=== PATIENT | female | born 1960 | race Caucasian/White ===

== ENCOUNTER 2023-11-16 14:10 | Emergency (ER) | payer OTHER, MEDICAID, SELFPAY ==
[2023-11-16 14:22] VITALS: BP 118/77; PULSE 77; RESP 16; TEMP 36.6; O2SAT 100; BMI 22.0
--- NOTE | 2023-11-16 14:37 | ED_ITS ---
HPI - General Adult General Chief complaint: Unspecified Complaint, Adult Stated complaint: PCP sent due to K+ 2.6 Time Seen by Provider: 11/16/23 14:37 History of Present Illness HPI narrative: This is a 63-year-old female with a past medical history of chronic back pain (follows with [facility], on opiates) constipation due to opiates (treats herself at home with Ex-Lax as needed) anxiety/depression, restless leg syndrome, chronic GERD. She is referred to the ER today after a phone conversation with her primary care provider, a doctor through the [facility] in [place], [place]. She was at the doctor's office yesterday for a routine preop history and physical. She is scheduled to have back surgery tomorrow. On her labs, she had dangerously low potassium last night with potassium of 2.6 so was told to come here to the ER. She says that she has been feeling fine lately. No weakness. No dizzy spells. No palpitations. No recent vomiting or diarrhea. Because of constipation she needs to use Ex-Lax once or twice a week. She does not drink alcohol. She does not smoke cigarettes. She does drink a lot of monster drinks. She does take ?a lot? of meds, but does not recall the list. She is not able to pull it up on her phone. She does not recall any diuretics. In review of her [facility] care link med list includes Albuterol Wellbutrin XL 300 mg daily Flexeril Cymbalta Gabapentin Omeprazole Oxycodone 5/325 Mupirocin cream Tretinoin cream She had her preop history and physical yesterday 11/14 with JANEY Harris Labs showed Na 140 K 2.6 Cl 98 CO2 33 Glc 83 Ca 9.3 BUN 15 Cr 1.07 Related Data Previous Rx's ?Medication ?Instructions ?Recorded potassium bicarbonate-citric acid 50 meq (2 x 25 mEq) PO QID #6 ea 11/16/23 25 mEq effervescent tablet Allergies Allergy/AdvReac Type Severity Reaction Status Date / Time Penicillins Allergy Severe Anaphylaxis Verified 11/16/23 14:21 tramadol AdvReac Intermediate Headache Verified 11/16/23 14:21 Exam Narrative: Exam Narrative: Constitutional: Appears well-developed and well-nourished. Alert. Conversant. Non toxic. HENT: Head: Atraumatic. Nose: Nose normal. Mouth/Throat: Oral mucosa is clear and moist. no trismus. Pharynx normal. Tonsils symmetric. No tonsillar enlargement, erythema, or exudate. Eyes: Conjunctivae normal. EOM normal. Pupils equal, round, and reactive to light. No scleral icterus. Neck: Normal range of motion. Neck supple. No tracheal deviation present. Cardiovascular: Normal rate, regular rhythm. No gallop. No friction rub. No murmur heard. Symmetric radial artery pulses Pulmonary/Chest: Effort normal. No stridor. No respiratory distress. No wheezes. No rales. No rhonchi . No tenderness. Abdominal: Soft. Bowel sounds normal. No distension. No mass. No tenderness. No rebound. No guarding. Musculoskeletal: RUE: Normal range of motion. No tenderness. No deformity LUE: Normal range of motion. No tenderness. No deformity RLE: Normal range of motion. No edema. No tenderness. No deformity LLE: Normal range of motion. No edema. No tenderness. No deformity Lymph: No cervical adenopathy. Neurological: Alert and oriented to person, place, and time. Normal strength. CN II-VII intact. No sensory deficit. GCS eye subscore is 4. GCS verbal subscore is 5. GCS motor subscore is 6. Normal coordination Skin: Skin is deeply green. Multiple tattoos. No rashes. Well groomed. Glossy turquoise fingernails. Skin is warm and dry. No rash noted. No pallor. Normal capillary refill. Psychiatric: Normal mood. Normal affect. Const: Vital Signs, click to edit/add: Vital Signs - 24 hr 11/16/23 14:22 11/16/23 17:43 Temperature 97.8 F Pulse Rate [Pulse Oximeter] 77 74 Respiratory Rate 16 16 Blood Pressure [Ri ght Upper Arm] 118/77 124/87 Pulse Oximetry 100 Oxygen Delivery Me thod Room Air Course Vital Signs Vital signs: Initial Vital Signs Temperature 97.8 F 11/16/23 14:22 Temperature Source Temporal Artery Scan 11/16/23 14:22 Pulse Rate 77 11/16/23 14:22 Respiratory Rate 16 11/16/23 14:22 Blood Pressure 118/77 11/16/23 14:22 Blood Pressure Mean 90 11/16/23 14:22 Blood Pressure Position Sitting 11/16/23 14:22 Pulse Oximetry 100 11/16/23 14:22 Oxygen Delivery Method Room Air 11/16/23 14:22 Vital Signs Temperature 97.8 F 11/16/23 14:22 Pulse Rate 77 11/16/23 14:22 Respiratory Rate 16 11/16/23 14:22 Blood Pressure 118/77 11/16/23 14:22 Pulse Oximetry 100 11/16/23 14:22 Oxygen Delivery Method Room Air 11/16/23 14:22 Temperature 97.8 F 11/16/23 14:22 Pulse Rate 74 11/16/23 17:43 Respiratory Rate 16 11/16/23 17:43 Blood Pressure 124/87 11/16/23 17:43 Pulse Oximetry 100 11/16/23 14:22 Oxygen Delivery Method Room Air 11/16/23 14:22 Medications Administered Medications: Discontinued Medications Generic Name Dose Route Start Last Admin Trade Name Freq PRN Reason Stop Dose Admin Potassium Chloride 10 meq in 100 mls @ 100 mls/hr 11/16/23 16:22 11/16/23 16:34 Potassium Chloride IVPB 11/16/23 17:21 100 mls/hr ONCE ONE Administration Potassium Bicarbonate 100 meq 11/16/23 16:26 11/16/23 16:33 Potassium Bicarb 25 Meq Effervescent Tab PO 11/16/23 16:27 100 meq ONCE ONE Administration Medical Decision Making MDM Narrative Medical decision making narrative: Pleasant 63-year-old female referred to the ER by her primary care provider, the [facility] in [place] for hypokalemia found on a outpatient lab draw yesterday (done for a routine preop history and physical). She says she is asymptomatic. No recent palpitations or other dizzy spells or presyncopal events. She is not on any diuretics. She denies alcohol consumption. She occasionally uses stool softeners for opiate induced constipation but does not have a problem with diarrhea or vomiting. She says she feels fine other than she has chronic low back pain and is very frustrated/disappointed that her long anticipated back surgery needs to be put off because of her low potassium. She is confirmed to be hypokalemic today. Potassium today is 2.3. Magnesium level is normal at 1.8. Kidney function is normal. Blood sugar normal. EKG does not show any ischemia or arrhythmia but does show a prolonged QT with a QTC of 484. This does suggest that hypokalemia is affecting the patient's cardiac conduction system and puts her at at least some risk for torsades and other arrhythmias. She I ordered initial potassium supplementation of 100 milk oval in some potassium bicarbonate p.o. and 10 milligrams/hour of potassium chloride IV. I recommended admission to the patient. Initially she seemed agreeable. Discussed with our hospitalist, Dr. Fischer who agreed to admit her for potassium supplementation and cardiac monitoring. Cause for hypokalemia is unclear. I do not see any meds on her med list that would be causative. No history of vomiting or diarrhea or alcohol consumption. Subsequently, the patient became very upset and angry saying that ?no way in hell? which she going to stay in the hospital. She is demanding to discharge home. I talked to her. I gave her my recommendation for hospitalization as well as the risk of malignant cardiac arrhythmias such as torsades and risk of sudden . Nonetheless she is demanding discharge. At this point she is clinically sober, she understands her diagnosis, the risks, and my rationale for admission. She understands the risks she is taking if she discharges to home. She has medical decision-making capacity. She will agree to stay here in the ER to complete her 1st oral doses and IV does. Additional oral potassium doses sent to her pharmacy so she can continue supplementing overnight. Potassium bicarbonate 50 mEq every 6 hours. Recommend outpatient follow-up tomorrow for repeat potassium check. If she is not able to follow-up with her primary, she should come back to ER or urgent care to get rechecked, without fail, tomorrow morning. Addendum: I was contacted by the patient's pharmacy. They do not have the right formulation of potassium bicarbonate. They do have 20 mEq tablets. Therefore will put her on 60 mEq every 6 hours. Lab Data Labs: Lab Results 11/16/23 Range/Units 14:51 Sodium 138 (135-149) mmol/L Potassium 2.3 L* (3.6-5.1) mmol/L Chloride 98 (96-114) mmol/L Carbon Dioxide 35 H (20-32) mmol/L Anion Gap 5 L (7-15) mEq/L BUN 16 (7-30) mg/dL Creatinine 1.1 (0.5-1.5) mg/dL Estimated Creat Clear 53.49 Estimated GFR 57 ml/min Glucose 99 (60-115) mg/dL Calcium 8.9 (8.4-10.6) mg/dL Magnesium 1.8 (1.5-2.6) mg/dL ECG Data Attestation: I personally reviewed and interpreted this ECG as follows: Interpretation: Normal sinus rhythm Rate: 68 [place]: 158. QRS axis: Normal axis. ST segment/T wave: Artifact in leads V1 and V2. No other ST segment elevation or depression. QTc: Prolonged QT. QTC 484 Discharge Plan Discharge Clinical Impression: Acute hypokalemia, Prolonged QT interval Patient Disposition: Home, Self-Care Condition: Stable Instructions: Hypokalemia (ED) Additional Instructions: As we discussed, your potassium is dangerously low today. It is very important to get your potassium level up. You received your 1st doses of potassium here in the ER. You need to take an additional dose this evening and an extra dose of potassium every 6 hours until tomorrow morning. You should have your potassium recheck tomorrow. If it is feasible you can have your potassium rechecked in your doctor's office. If that is not possible please come back to the ER or urgent care to have a potassium level recheck tomorrow. If you change your your mind about hospitalization or if you have any worsening symptoms such as weakness, dizziness, palpitations, or fainting spells, call 911 or return to the ER right away. Prescriptions: New potassium bicarb-citric acid 25 mEq tablet, effervescent 50 meq PO QID Qty: 6 0RF Follow Up/Referrals: Provider,Not a Local [Primary Care Provider] - Stand Alone Forms: [employer] Info Instructions
[2023-11-16 15:13] LABS: Chloride* 98 mmol/L (96-114); Sodium* 138 mmol/L (135-149)
[2023-11-16 15:15] LABS: Creatinine* 1.1 mg/dL (0.5-1.5); Est. Creatinine Clearance* 53.49; Estimated Glomerular Filt Rate 57 ml/min
[2023-11-16 15:16] LABS: Anion Gap 5 mEq/L (7-15); Blood Urea Nitrogen* 16 mg/dL (7-30); Calcium* 8.9 mg/dL (8.4-10.6); Carbon Dioxide* 35 mmol/L (20-32); Glucose* 99 mg/dL (60-115)
[2023-11-16 15:36] LABS: Potassium* 2.3 mmol/L (3.6-5.1)
[2023-11-16 16:23] LABS: Magnesium* 1.8 mg/dL (1.5-2.6)
[2023-11-16] MEDS: POTASSIUM BICARB 25 MEQ EFFERVESCENT TAB 100 MEQ PO (16:33)
[2023-11-16] MEDS: POTASSIUM CHLORIDE 10 MEQ/100 ML PIGGYBACK 100 MEQ IVPB (16:34)
[2023-11-16 17:43] VITALS: BP 124/87; PULSE 74; RESP 16
== END 2023-11-16 18:00 | disposition home or self-care (01) ==
PROVIDERS: Emergency Provider Emergency Medicine
DX: E87.6 Hypokalemia (principal); I45.81 Long QT syndrome
CPT/HCPCS: 36415; 80048; 83735; 93005; 96365; 99283; 99284; A9270; J3480

== ENCOUNTER 2023-11-17 10:11 | Emergency (ER) | payer MEDICARE, MEDICAID, SELFPAY ==
[2023-11-17 10:16] VITALS: BP 107/72; PULSE 74; RESP 18; TEMP 36.2; O2SAT 98; BMI 22.0
--- NOTE | 2023-11-17 10:53 | ED.GENADULT ---
HPI - General Adult General Time Seen by Provider: 10:56 Date Seen: 11/17/23 Chief complaint: Unspecified Complaint, Adult Stated complaint: re-check potassium Time Seen by Provider: 11/17/23 10:49 Source: patient and RN notes reviewed Mode of arrival: ambulatory Limitations: no limitations History of Present Illness HPI narrative: This 63-year-old female is coming in with concern of oral potassium pills making her feel sick. She was in the ER yesterday for asymptomatic hypokalemia found on preoperative testing. She received oral potassium here, did not want hospitalization, refused it. Her outpatient pharmacy had to give her oral tablets. These made her feel nauseated. Her stomach is feeling better as she did take Tums. She is back to be rechecked. She is supposed to have a lumbar surgery to relieve ?pressure on her spine?. She states she really does not feeling different. She does get some lower leg aching due to her back but denies any muscle cramps, no weakness. She states she does not feel any different. The provider yesterday did review with her that we have no discernible etiology as to the cause of her potassium. It is possible that she could have renal tubular acidosis or other etiologies. This workup in an asymptomatic patient is beyond the realm of the ED, she understands that she may need more outpatient workup. We can check her electrolytes in the meantime. Related Data Previous Rx's ?Medication ?Instructions ?Recorded potassium bicarbonate-citric acid 50 meq (2 x 25 mEq) PO QID #6 ea 11/16/23 25 mEq effervescent tablet Allergies Allergy/AdvReac Type Severity Reaction Status Date / Time Penicillins Allergy Severe Anaphylaxis Verified 11/17/23 10:24 tramadol AdvReac Intermediate Headache Verified 11/17/23 10:24 Review of Systems Status of ROS: Reports: 6 or more systems reviewed and unremarkable except as noted in History and below [facility] Social History Smoking Status: Never smoker Do you use any of these nicotine containing products: None How often do you have a drink containing alcohol: never How often do you have six or more drinks on one occasion: Never AUDIT-C Alcohol total score: 0 Non-prescribed substance use: denies use service: No Exam Const: Vital Signs, click to edit/add: Vital Signs - 24 hr 11/17/23 10:16 Temperature 97.2 F L Pulse Rate [Right Pulse Oximeter] 74 Respiratory Rate 18 Blood Pressure [Ri ght Upper Arm] 107/72 Pulse Oximetry 98 Oxygen Delivery Me thod Room Air This 63-year-old female is alert, interactive, no apparent distress. Skin is tanned, multiple tattoos. She overall is very pleasant, speech normal. Sclera clear, extraocular muscles intact, pupils equal and round. Lungs are clear, good air entry, wheeze or crackles. CV regular rate and rhythm, no murmur, normal S1-S2, no S3-S4. She has no lower extremity edema abdomen is soft, nontender, nondistended, no masses. Documenting provider has reviewed patient's vital signs: yes Course Course ED Course: We will recheck her basic metabolic panel and magnesium today. She may have to find the source of the liquid potassium to tolerate this and have further outpatient workup for her hypokalemia. Her primary care provider may need to send her to Nephrology. Reevaluation(s) Time of Reevaluation #1: 12:19 Reevaluation #1: Have reviewed with patient her potassium is normal here today. We have discussed trying eating more natural foods with higher content of potassium. She feels that might be her problem. She is aware that she does need to have her potassium followed or rechecked next week to ensure that dietary management is adequate. If she has ongoing issues with hypokalemia, will need referral or workup with her primary care. Vital Signs Vital signs: Initial Vital Signs Temperature 97.2 F L 11/17/23 10:16 Temperature Source Temporal Artery Scan 11/17/23 10:16 Pulse Rate 74 11/17/23 10:16 Pulse Rhythm Regular 11/17/23 10:16 Respiratory Rate 18 11/17/23 10:16 Blood Pressure 107/72 11/17/23 10:16 Blood Pressure Mean 83 11/17/23 10:16 Blood Pressure Position Sitting 11/17/23 10:16 Pulse Oximetry 98 11/17/23 10:16 Oxygen Delivery Method Room Air 11/17/23 10:16 Vital Signs Temperature 97.2 F L 11/17/23 10:16 Pulse Rate 74 11/17/23 10:16 Respiratory Rate 18 11/17/23 10:16 Blood Pressure 107/72 11/17/23 10:16 Pulse Oximetry 98 11/17/23 10:16 Oxygen Delivery Method Room Air 11/17/23 10:16 Temperature 97.2 F L 11/17/23 10:16 Pulse Rate 74 11/17/23 10:16 Respiratory Rate 18 11/17/23 10:16 Blood Pressure 107/72 11/17/23 10:16 Pulse Oximetry 98 11/17/23 10:16 Oxygen Delivery Method Room Air 11/17/23 10:16 Medical Decision Making Lab Data Lab results reviewed: Yes I reviewed the patient's lab results Labs: Lab Results 11/17/23 Range/Units 11:12 Sodium 141 (135-149) mmol/L Potassium 4.3 (3.6-5.1) mmol/L Chloride 106 (96-114) mmol/L Carbon Dioxide 32 (20-32) mmol/L Anion Gap 3 L (7-15) mEq/L BUN 15 (7-30) mg/dL Creatinine 1.0 (0.5-1.5) mg/dL Estimated Creat Clear 58.84 Estimated GFR 64 ml/min Glucose 81 (60-115) mg/dL Calcium 9.1 (8.4-10.6) mg/dL Magnesium 1.9 (1.5-2.6) mg/dL Discharge Plan Discharge Clinical Impression: No abnormality discovered Patient Disposition: Home, Self-Care Condition: Stable Instructions: Potassium Content of Foods List (ED), Hypokalemia (ED) Additional Instructions: Your potassium is completely normal here today. Would recommend that you try to eat foods that are high in potassium off the list that was provided for you. Since the oral pills are not a green with you, try to increase potassium in her natural diet. Have your potassium rechecked in clinic on Monday or Monday of this coming week. Activity Level: Activity as Tolerated Prescriptions: No Action potassium bicarb-citric acid 25 mEq tablet, effervescent 50 meq PO QID Qty: 6 0RF Follow Up/Referrals: Provider,Not a Local [Primary Care Provider] - Stand Alone Forms: [employer] Info Instructions
[2023-11-17 11:52] LABS: Chloride* 106 mmol/L (96-114); Potassium* 4.3 mmol/L (3.6-5.1); Sodium* 141 mmol/L (135-149)
[2023-11-17 11:55] LABS: Anion Gap 3 mEq/L (7-15); Blood Urea Nitrogen* 15 mg/dL (7-30); Calcium* 9.1 mg/dL (8.4-10.6); Carbon Dioxide* 32 mmol/L (20-32); Est. Creatinine Clearance* 58.84; Estimated Glomerular Filt Rate 64 ml/min; Glucose* 81 mg/dL (60-115)
[2023-11-17 11:56] LABS: Magnesium* 1.9 mg/dL (1.5-2.6)
== END 2023-11-17 12:25 | disposition home or self-care (01) ==
PROVIDERS: Emergency Provider Family Medicine
DX: E87.6 Hypokalemia (principal)
CPT/HCPCS: 36415; 80048; 83735; 99283